=== PATIENT | male | born 1985 | race American Indian/Alaskan Native ===

== ENCOUNTER 2020-05-14 01:33 | Emergency (ER) | payer OTHER ==
[2020-05-14 04:22] VITALS: BP 147/108
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
[2020-05-14] MEDS ORDERED: KETOROLAC 10 MG TAB PO ONE (04:59)
[2020-05-14] MEDS ORDERED: BACITRACIN ZINC OINT 28.4 GM TP STA (04:59)
== END 2020-05-14 05:30 | disposition home or self-care (01) ==
LOC: ED 01:33
DX: S16.1XXA Strain of muscle, fascia and tendon at neck level, initial encounter (principal); I10 Essential (primary) hypertension; F17.200 Nicotine dependence, unspecified, uncomplicated; Z98.890 Other specified postprocedural states; Z79.899 Other long term (current) drug therapy; V49.49XA Driver injured in collision with other motor vehicles in traffic accident, initial encounter; Y92.410 Unspecified street and highway as the place of occurrence of the external cause; Y93.89 Activity, other specified; Y99.8 Other external cause status
CPT/HCPCS: 99283